=== PATIENT | male | born 1955 | race Two or more races ===

== ENCOUNTER 2016-07-29 21:52 | Emergency (ER) | payer OTHER ==
[~2016-07-29] VITALS: Ht 167.6 cm; Wt 84.1 kg
[~2016-07-29 21:52] MED LIST: ACID CONTROL150 MG PO; ADVIL PM1 TABLET PO; ASPIR 8181 M1 PO; ASPIR 8181 MG PO; ATENOLOL25 MG PO; ATENOLOL50 M1 NG; ATENOLOL50 MG PO; COLCRYS0.6 MG PO; DICYCLOMINE HCL20 MG PO; EFFIENT10 MG PO; HYDROCODON-ACE1 EAC7 PO; IMDUR30 MG PO; ISOSORBIDE DINI30 MG PO; LEVAQUIN750 MG PO; LISINOPRIL20 MG PO; METOPROLOL SUCC50 MG PO; MOTRIN600 M1 PO; NITROSTAT0.4 MG SL; OMEPRAZOLE40 M1 PO; PLAVIX75 MG PO; PRAVACHOL40 MG PO; PRAVASTATIN SOD40 MG PO; PRAVASTATIN SOD80 MG PO; PRINIVIL20 MG PO; SERTRALINE HCL50 MG PO; SIMVASTATIN5 MG PO; TENORMIN25 MG PO; URSODIOL300 MG PO; ZESTRIL,PRINIV2.5 MG PO; ZOFRAN ODT4 MG PO
[2016-07-29 22:40] VITALS: BP 108/69
[2016-07-29 23:26] LABS: HEMATOCRIT 40.3 % (38.0-50.0); MCH 29.8 PG (29.0-34.0); MCV 87.6 FL (86-99); MEAN PLAT.VOLUME 10.1 uM^3 (9.0-12.4); PLATELET COUNT 229 K/uL (156-360); RBC DIS.WIDTH-SD 38.4 % (39-53); WHITE BLOOD COUNT 9.4 K/uL (4.1-10.2)
[2016-07-29 23:33] LABS: CHLORIDE 108 mEq/L (99-109); POTASSIUM 4.6 mEq/L (3.7-5.4); SODIUM 141 mEq/L (136-147)
[2016-07-29 23:35] LABS: GLUCOSE 132 mg/dL (70-99)
[2016-07-29 23:36] LABS: ANION GAP 9 MEQ/L (2-14)
[2016-07-29 23:39] LABS: GFR ESTIMATE (CALCULATED) > 59 mL/min/
[2016-07-29 23:40] LABS: UREA NITROGEN (BUN) 19 mg/dL (9-23)
[2016-07-29 23:48] LABS: TROP-I INTERPRETATION NEGATIVE; TROPONIN-I < 0.01 ng/mL (0.0-0.30)
[2016-07-30 03:12] LABS: TOTAL BILIRUBIN 0.3 mg/dL (0.0-1.0)
[2016-07-30 03:13] LABS: ALKALINE PHOSPHATASE 48 IU/L (3-129)
[2016-07-30 03:14] LABS: D-DIMER ELISA < 0.15 mg/L FEU (< 0.57)
[2016-07-30 03:15] LABS: DIRECT BILIRUBIN 0.1 mg/dL (0.0-0.3)
[2016-07-30 03:16] LABS: LIPASE 44 U/L (1.0-51.0)
== END 2016-07-30 03:14 | disposition left against medical advice (07) ==
LOC: EME 21:52
DX: R07.9 Chest pain, unspecified (principal); Z53.21 Procedure and treatment not carried out due to patient leaving prior to being seen by health care provider
CPT/HCPCS: 71020; 80048; 80076; 83690; 84484; 85027; 85379; 93005